=== PATIENT | male | born 1935 | race American Indian/Alaskan Native ===

== ENCOUNTER 2020-01-14 17:05 | Emergency (ER) | payer MEDICARE ==
--- NOTE | 2020-01-14 18:03 | Event Note ---
ED Screening Note Date of service: 01/14/20 Time: 18:01 ED Screening Note: daughter c/o combativeness and confusion x today pt states hx of Dementia, sates pt has calmed down after she gave him seroquel pt denies any pain This initial assessment/diagnostic orders/clinical plan/treatment(s) is/are subject to change based on patients health status, clinical progression and re- assessment by fellow clinical providers in the ED. Further treatment and workup at subsequent clinical providers discretion. Patient/guardian urged not to elope from the ED as their condition may be serious if not clinically assessed and managed. Initial orders include: labs
[2020-01-14 18:47] LABS: Basophils # (Auto) 0.1 K/mm3 (0.0-0.1); Eosinophils # (Auto) 0.2 K/mm3 (0.0-0.4); Eosinophils % (Auto) 3.3 % (0.0-4.3); Hematocrit 39.6 % (35.5-45.6); Hemoglobin 13.2 gm/dl (11.8-15.2); Lymphocytes # (Auto) 2.1 K/mm3 (1.2-5.4); Lymphocytes % (Auto) 37.2 % (13.4-35.0); Mean Corpuscular HGB Conc 33 % (32-34); Mean Corpuscular Volume 90 fl (84-94); Monocytes # (Auto) 0.5 K/mm3 (0.0-0.8); Monocytes % (Auto) 8.2 % (0.0-7.3); Platelet Count 198 K/mm3 (140-440); Red Blood Count 4.41 M/mm3 (3.65-5.03); Red Cell Distribution Width 15.2 % (13.2-15.2)
[2020-01-14 18:54] LABS: Bilirubin,Urine NEG (Negative); Blood,Urine NEG (Negative); Color,Urine Yellow (Yellow); Mucus,Urine FEW /HPF; Protein,Urine <15 mg/dL mg/dL (Negative); Urobilinogen,Urine < 2.0 mg/dL (<2.0)
--- NOTE | 2020-01-14 19:07 | XRay Report ---
CHEST 2 VIEWS INDICATION / CLINICAL INFORMATION: MAIN. Confusion and hallucinations COMPARISON: None available. FINDINGS: SUPPORT DEVICES: None. HEART / MEDIASTINUM: No significant abnormality. LUNGS / PLEURA: No significant pulmonary or pleural abnormality. No pneumothorax. ADDITIONAL FINDINGS: Minimally displaced right rib fracture involving the ninth rib laterally. IMPRESSION: 1. No acute cardiopulmonary process. 2. Minimally displaced right ninth rib fracture. Correlate for recent history of trauma. Signer Name: Manuel Tovar MD Signed: 01/14/2020 7:02 PM Workstation Name: [id number]
[2020-01-14 19:11] LABS: Alanine Aminotransferase 8 units/L (7-56)
[2020-01-14 19:25] LABS: BUN/Creatinine Ratio 15; Blood Urea Nitrogen 18 mg/dL (9-20); Calcium 7.8 mg/dL (8.4-10.2); Hemolysis Index 8
--- NOTE | 2020-01-14 20:01 | Cat Scan Report ---
CT HEAD WITHOUT CONTRAST INDICATION : hallucinations, hx of dementia. TECHNIQUE: Axial imaging performed from the skull apex through the skull base without the use of con trast. Sagittal and coronal reformatted images. All CT scans at this location are performed using C T dose reduction for ALARA by means of automated exposure control. COMPARISON: None FINDINGS: Parenchyma: No acute intracranial hemorrhage or parenchymal abnormality. Ventricles: Ventricles are normal in size and appear symmetric. Bones: No acute osseous abnormality. Sinuses: Sinuses and mastoid air cells are clear. Soft tissues: Soft tissues including the orbits appear normal. IMPRESSION: Cranial CT scan within normal limits. Signer Name: Presley Hadley Jr, MD Signed: 01/14/2020 7:56 PM Workstation Name: [id number]
--- NOTE | 2020-01-15 00:15 | Emergency Department Report ---
ED Psych HPI - General Chief Complaint: Altered Mental Status Stated Complaint: PATIENT DIAGNOSED WITH LEWY BODY Time Seen by Provider: 01/14/20 18:01 Source: patient Mode of arrival: Ambulatory - History of Present Illness Initial Comments: Patient is 84 years old male with history of dementia, hypertension and diabetes. Patient brought to the emergency room by his daughter for evaluation of confusion, agitation and significant visual hallucination. Daughter stated that he became very agitated and stating that he is seeing round things and lines and they are crawling on his body and is coming to his room from everywhere. Daughter stated that she gave him Seroquel that he was prescribed by his primary care physician. She stated that he had history of visual hallucination for the last few weeks but tonight is just get worse. Patient admitted that he is seeing stuff that other people are not seeing and is really bothering him. He denied any suicidal or homicidal ideation. No auditory hallucination. MD Complaint: altered mental status -: week(s) Associated Psychiatric Symptoms: visual hallucinations Quality: constant - Related Data Allergies Allergy/AdvReac Type Severity Reaction Status Date / Time haloperidol [From Haldol] Allergy Unknown Verified 01/14/20 18:01 ED Review of Systems ROS: Stated complaint: PATIENT DIAGNOSED WITH LEWY BODY Other details as noted in HPI Comment: All other systems reviewed and negative Constitutional: denies: chills, fever Respiratory: denies: cough, shortness of breath, SOB with exertion Cardiovascular: denies: chest pain, palpitations Gastrointestinal: denies: abdominal pain, nausea Neurological: confusion. denies: headache, weakness, numbness, paresthesias, abnormal gait Psychiatric: anxiety, visual hallucinations. denies: auditory hallucinations, homicidal thoughts, suicidal thoughts ED Past Medical Hx - Past Medical History Hx Hypertension: Yes Hx Diabetes: Yes Additional medical history: Prostate CA - Surgical History Past Surgical History?: No - Social History Smoking Status: Current Every Day Smoker ED Physical Exam - General Limitations: No Limitations General appearance: alert, in no apparent distress, anxious - Head Head exam: Present: atraumatic, normocephalic, normal inspection - Eye Eye exam: Present: normal appearance - ENT ENT exam: Present: normal exam, normal orophraynx, mucous membranes moist - Neck Neck exam: Present: normal inspection, full ROM. Absent: tenderness, meningis mus - Respiratory Respiratory exam: Present: normal lung sounds bilaterally - Cardiovascular Cardiovascular Exam: Present: regular rate, normal rhythm, normal heart sounds - GI/Abdominal GI/Abdominal exam: Present: soft, normal bowel sounds. Absent: distended, tenderness, guarding, rebound, rigid, organomegaly, mass, bruit, pulsatile mass, hernia - Extremities Exam Extremities exam: Present: normal inspection, full ROM, normal capillary refill - Back Exam Back exam: Present: normal inspection, full ROM. Absent: CVA tenderness (R), CVA tenderness (L) - Neurological Exam Neurological exam: Present: alert, oriented X3, CN II-XII intact, normal gait, reflexes normal. Absent: motor sensory deficit - Psychiatric Psychiatric exam: Present: normal mood - Skin Skin exam: Present: warm, intact, normal color ED Course Vital Signs 01/14/20 18:03 Temperature 98.0 F Pulse Rate 84 Respiratory 18 Rate Blood Pressure 167/87 O2 Sat by Pulse 98 Oximetry ED Medical Decision Making - Lab Data Result diagrams: 01/14/20 18:33 01/14/20 18:33 - Radiology Data Radiology results: report reviewed - Medical Decision Making Patient is 84 years old male with history of dementia, hypertension and diabetes. Patient brought to the emergency room by his daughter for evaluation of confusion, agitation and significant visual hallucination. Daughter stated that he became very agitated and stating that he is seeing round things and lines and they are crawling on his body and is coming to his room from everywhere. Daughter stated that she gave him Seroquel that he was prescribed by his primary care physician. She stated that he had history of visual hallucination for the last few weeks but tonight is just get worse. Patient admitted that he is seeing stuff that other people are not seeing and is really bothering him. He denied any suicidal or homicidal ideation. No auditory hallucination. Labs reviewed and is unremarkable. CT brain is negative for acute finding. Patient is experiencing dementia psychosis. Patient is medically clear to be evaluated by our psychiatric team. Critical care attestation.: If time is entered above; I have spent that time in minutes in the direct care of this critically ill patient, excluding procedure time. ED Disposition Clinical Impression: Altered mental status, Visual hallucination, Dementia with psychosis Condition: Stable Referrals: PRIMARY CARE, [Primary Care Provider] - 3-5 Days
[2020-01-15 01:16] LABS: Amphetamine Screen,Urine PRESUMPTIVE NEGATIVE; Benzodiazepines Screen,Urine PRESUMPTIVE NEGATIVE; Cannabinoid Screen,Urine PRESUMPTIVE NEGATIVE; Cocaine Screen,Urine PRESUMPTIVE NEGATIVE; Methadone Screen,Urine PRESUMPTIVE NEGATIVE; Opiate Screen,Urine PRESUMPTIVE NEGATIVE
[2020-01-15] MEDS ORDERED: METOPROLOL TARTRATE 50 MG TAB PO ONE (20:48)
[2020-01-15 20:53] VITALS: BP 158/72
== END 2020-01-15 22:19 ==
LOC: ED 17:05
DX: F23 Brief psychotic disorder (principal); F03.90 Unspecified dementia, unspecified severity, without behavioral disturbance, psychotic disturbance, mood disturbance, and anxiety; R41.82 Altered mental status, unspecified; I10 Essential (primary) hypertension; E11.9 Type 2 diabetes mellitus without complications; F17.200 Nicotine dependence, unspecified, uncomplicated; Z85.46 Personal history of malignant neoplasm of prostate; Z88.8 Allergy status to other drugs, medicaments and biological substances
CPT/HCPCS: 36415; 70450; 71045; 80053; 80307; 81001; 82962; 84484; 85025; 93005; 99285; U0003; 80320; G0480

== ENCOUNTER 2020-01-15 16:49 | Inpatient (IN) | payer MEDICARE ==
[2020-01-15] MEDS ORDERED: MELATONIN 5 MG TAB PO PRN (17:32)
[2020-01-15] MEDS: OMEGA-3 FATTY ACIDS/FISH OIL 1 GRAM CAP PO SCH (22:44)
[2020-01-15] MEDS: traZODone 50 MG TAB PO SCH (22:44)
--- NOTE | 2020-01-16 07:50 | History and Physical Report ---
GP History & Physical - History of Present Illness Date of admission: 01/15/20 Date of Examination: 01/16/20 Reason for Admission: Danger to others, Psychopathology interference History of Present Illness: Per ED Provider: Patient is 84 years old male with history of dementia, hypertension and diabetes. Patient brought to the emergency room by his daughter for evaluation of confusion, agitation and significant visual hallucination. Daughter stated that he became very agitated and stating that he is seeing round things and lines and they are crawling on his body and is coming to his room from everywhere. Daughter stated that she gave him Seroquel that he was prescribed by his primary care physician. She stated that he had history of visual hallucination for the last few weeks but tonight is just get worse. Patient admitted that he is seeing stuff that other people are not seeing and is really bothering him. He denied any suicidal or homicidal ideation. No auditory hallucination. HPI Patient is a 84-year-old retired -[place] male with no past psychiatric history with past medical history of Lewy body dementia was brought to emergency department by the daughter due to concerns of worsening visual hallucinations. Per daughter, she report patient has been having visual sedation in the last couple of weeks was started on Seroquel by the primary care provider but she seems to visualization has been worsening patient has been complaining more daily about seeing things such as people walking in his room people mopping the floor, the bubbles and or disturbing images that no one else sees which patient is aware that other people are not seeing. Patient is alert and oriented to self and environment patient knows it is year 2019 and is aware about the months patient scored 16 on the slums mental status exam correlating with diagnosis of dementia. Patient can be seen sometimes intermittently laughing at others even though conversations and not funny PAST PSYCHIATRIC HISTORY: Diagnoses: none Suicide attempts or Self-harm behavior: Prior psychiatric hospitalizations Substance Abuse history: Previous psychiatric medications tried: Outpatient treatment: PAST MEDICAL HISTORY: Pratik Body dementia Family Psychiatric History: None reported or documented SOCIAL HISTORY Marital Status: Living Arrangements:with self Employment Status: retired Access to guns/weapons: none reported Education: High school History of Abuse: physical Legal History: none reported REVIEW OF SYSTEMS ROS cannot be reliably obtained from the patient due to his mental state REVIEW OF SYSTEMS Constitutional: Negative for weight loss ENT: Negative for stridor Respiratory: Negative for cough or hemoptysis All other systems reviewed and are negative MENTAL STATUS EXAMINATION General Appearance and Behavior: Age appropriate, good hygiene, wearing appropriate clothes, good eye contact, cooperative polite with questioning. Cooperation: Participating Withdrawn Psychomotor Behavior: unremarkable and within normal limits Mood: Good, Affect and affective range: congruent Thought Process: Loose associations Thought Content: Illogical, hallucinations Speech: Normal volume, Regular rate and rhythm, Intellectual Functioning: Average Suicidal Ideation: Denies SI Homicidal Ideation: denies Impulse Control: Impaired Insight and Judgment: Impaired Memory: impaired Attention: Divided attention impaired Orientation: Alert, oriented Assessment and Plan - Psychiatric problem (1) Dementia with psychosis Current Visit: Yes Status: Acute Treatment Plan Quetiapine 100 mg BID Patient admitted for inpatient psychiatric evaluation, medication adjustment and close monitoring The patient's behavior, mood, sleep and appetite will be closely monitored. Patient enrolled in individual and group therapeutic sessions and encouraged to attend. Patient provided with a safe and structured environment. Patient's physical health needs will be addressed by the Hospitalist. Hospitalist Consulted Labs including CBC, CMP, Lipid profile and Hemoglobin A[facility]C [facility] Social Assessment will be completed and the Heart Coordinator will work with patient and family to ensure a suitable and safe disposition Medication adjustment will be made as clinically indicated Usual Wellness Islam/Preservation: - Start Trazodone 50 mg po QHS & 50 mg po QHS PRN between 10 PM & 2 AM for insomnia - Start Melatonin 5 mg po QHS to promote circadian rhythm - Start [place]-3 for brain health, reduce impulsivity, and as adjunctive treatment for mood disorder, continue upon discharge given overall benefits. - Start B1 prophylaxis with 200 mg po for 5 days The patient agreed on the treatment plan, understood the risk, benefit, alternative treatment, potential consequence of no treatment, and gave informed consent. Initial Certification Inpatient psych services: I certify that the inpatient psychiatric services are required for treatment that could reasonably be expected to improve the patient's condition. Estimated days: 7 Post hospital care: primary care provider, psychiatric provider Legal Status: Other Patient Problems: Current Active Problems Dementia with psychosis (Acute) Reaction to Hospitalization: Accepting Medications and Allergies Allergies Allergy/AdvReac Type Severity Reaction Status Date / Time haloperidol [From Haldol] Allergy Unknown Verified 01/14/20 18:01 Home Medications Medication Instructions Recorded Confirmed Last Taken Type Memantine HCl 21 mg PO DAILY 01/16/20 01/16/20 Unknown History Metoprolol Tartrate 50 mg PO DAILY 01/16/20 01/16/20 Unknown History Pravastatin Sodium 20 mg PO DAILY 01/16/20 01/16/20 Unknown History Rivastigmine [Exelon Patch 9.5 mg TRANSDERMA Q24HR 01/16/20 01/16/20 Unknown History 9.5mg/24hr] SEROquel 50 mg PO BID 01/16/20 01/16/20 Unknown History Tamsulosin 0.4 mg PO DAILY 01/16/20 01/16/20 Unknown History Active Meds: Active Medications Fish Oil (Fish Oil) 2,000 mg PO BID [facility] Last Admin: 01/15/20 22:44 Dose: 2,000 mg Documented by: Melatonin (Melatonin) 5 mg PO QHS PRN PRN Reason: Sleep Last Admin: 01/15/20 22:44 Dose: 5 mg Documented by: Trazodone HCl (Desyrel) 50 mg PO QHS [facility] Last Admin: 01/15/20 22:44 Dose: 50 mg Documented by: Results - Results Labs/Vitals: Laboratory Last Values POC Glucose 103 mg/dL (70-105) 01/16/20 06:38 Last Vital Signs Temp 98.4 F 01/15/20 22:33 Pulse 75 01/15/20 22:33 Resp 16 01/15/20 22:33 BP 132/73 01/15/20 22:33 Pulse Ox 98 01/15/20 22:33 Physical Examination - Constitutional Vitals: Vital Signs Temp Pulse Resp BP Pulse Ox 98.4 F 75 16 132/73 98 01/15/20 22:33 01/15/20 22:33 01/15/20 22:33 01/15/20 22:33 01/15/20 22:33 Temperature -Last 24 Hours Temperature 98.4 F Mental Status Exam - Vital signs Last Vital Signs Temp 98.4 F 01/15/20 22:33 Pulse 75 01/15/20 22:33 Resp 16 01/15/20 22:33 BP 132/73 01/15/20 22:33 Pulse Ox 98 01/15/20 22:33 Assessment and Plan - Psychiatric problem (1) Dementia with psychosis Current Visit: Yes Status: Acute Physician Certification - Certification Statement Physician Certification Statement: This is an acknowledgement statement that DENISE SHRAIF is a 84 year old M who requires inpatient psychiatric admission for treatment which could reasonably be expected to improve the patient's condition for Estimated period of time patient will need to remain in the hospital: [ ] Plan for post-hospital care: [ ]
[2020-01-16] MEDS: OMEGA-3 FATTY ACIDS/FISH OIL 1 GRAM CAP PO SCH ×2 (09:18→21:44)
[2020-01-16] MEDS: QUEtiapine 100 MG TAB PO SCH ×2 (09:19→21:45)
[2020-01-16] MEDS ORDERED: NON-FORMULARY EACH (Seroquel 100 MG) PO SCH (10:00)
[2020-01-16 17:41] LABS: Chol/HDL Ratio 3.53 %
[2020-01-16 17:47] LABS: Hepatitis B Surface Antigen Non-Reactive (Negative); Hepatitis C Virus Antibody Non-Reactive (NonReactive)
[2020-01-16] MEDS: traZODone 50 MG TAB PO SCH (21:45)
--- NOTE | 2020-01-17 08:10 | Progress Note ---
Subjective Date of service: 01/17/20 Principal diagnosis: Lewybody Dementia Subjective Comment: During my interview with the patient today, he is sitting in the dayroom eating breakfast. He is a/o x 2. He says he was admitted for hallucinations. The patient says "I was seeing spots all over the floor." When asked was he still seeing things, the patient starts looking down and around over the floor. He says "not now. I don't see nothing on the floor." He then says, "but in my room this morning I saw the spots and bubbles on the floor." He denies SI/HI. The patient says he slept well. Reason for continued inpatient treatment: The patient continues to hallucinate. Will continue to treat and stabilize. REVIEW OF SYSTEMS Constitutional: Negative for weight loss ENT: Negative for stridor Respiratory: Negative for cough or hemoptysis All other systems reviewed and are negative MENTAL STATUS EXAMINATION General Appearance and Behavior: Age appropriate, good hygiene, wearing appropriate clothes, good eye contact, cooperative polite with questioning. Mood: Good Affect and affective range: congruent Thought Process: Loose associations Thought Content: Illogical, hallucinations Speech: Normal volume, Regular rate and rhythm, Intellectual Functioning: Average Suicidal Ideation: Denies Homicidal Ideation: Denies Hallucinations: Visual Delusions: None elicited Impulse Control: Impaired Insight and Judgment: Impaired Memory: impaired Attention: Divided attention impaired Orientation: Alert, oriented Assessment and Plan (1) Dementia with psychosis Current Visit: Yes Status: Acute Treatment Plan Patient admitted for inpatient psychiatric evaluation, medication adjustment and close monitoring The patient's behavior, mood, sleep and appetite will be closely monitored. Patient enrolled in individual and group therapeutic sessions and encouraged to attend. Patient provided with a safe and structured environment. Patient's physical health needs will be addressed by the Hospitalist. Hospitalist Consulted Labs including CBC, CMP, Lipid profile and Hemoglobin A1C levels ordered for baseline reference Social Assessment will be completed and the Hide Buyer will work with patient and family to ensure a suitable and safe disposition Medication adjustment will be made as clinically indicated Continue current meds. No changes made today Usual Wellness Hinduism/Preservation: - Start Trazodone 50 mg po QHS & 50 mg po QHS PRN between 10 PM & 2 AM for insomnia - Start Melatonin 5 mg po QHS to promote circadian rhythm - Start [place]-3 for brain health, reduce impulsivity, and as adjunctive treatment for mood disorder, continue upon discharge given overall benefits. - Start B1 prophylaxis with 200 mg po for 5 days The patient agreed on the treatment plan, understood the risk, benefit, alternative treatment, potential consequence of no treatment, and gave informed consent. Estimated days: 7 Post hospital care: primary care provider, psychiatric provider Medications and Allergies Allergies Allergy/AdvReac Type Severity Reaction Status Date / Time haloperidol [From Haldol] Allergy Unknown Verified 01/14/20 18:01 Home Medications Medication Instructions Recorded Confirmed Last Taken Type Memantine HCl 21 mg PO DAILY 01/16/20 01/16/20 Unknown History Metoprolol Tartrate 50 mg PO DAILY 01/16/20 01/16/20 Unknown History Pravastatin Sodium 20 mg PO DAILY 01/16/20 01/16/20 Unknown History Rivastigmine [Exelon Patch 9.5 mg TRANSDERMA Q24HR 01/16/20 01/16/20 Unknown History 9.5mg/24hr] SEROquel 50 mg PO BID 01/16/20 01/16/20 Unknown History Tamsulosin 0.4 mg PO DAILY 01/16/20 01/16/20 Unknown History Active Meds: Active Medications Fish Oil (Fish Oil) 2,000 mg PO BID [facility] Last Admin: 01/16/20 21:44 Dose: 2,000 mg Documented by: Melatonin (Melatonin) 5 mg PO QHS PRN PRN Reason: Sleep Last Admin: 01/15/20 22:44 Dose: 5 mg Documented by: Quetiapine Fumarate (Seroquel) 100 mg PO BID [facility] Last Admin: 01/16/20 21:45 Dose: 100 mg Documented by: Trazodone HCl (Desyrel) 50 mg PO QHS [facility] Last Admin: 01/16/20 21:45 Dose: 50 mg Documented by: Results - Results Labs/Vitals: Laboratory Last Values POC Glucose 102 mg/dL (70-105) 01/17/20 08:07 Hemoglobin A1c 6.1 % (4-6) H 01/16/20 16:35 Triglycerides 85 mg/dL (2-149) 01/16/20 16:35 Cholesterol 191 mg/dL (50-199) 01/16/20 16:35 LDL Cholesterol Direct 129 mg/dL (50-130) 01/16/20 16:35 HDL Cholesterol 54 mg/dL (40-59) 01/16/20 16:35 Cholesterol/HDL Ratio 3.53 % 01/16/20 16:35 TSH 1.770 mlU/mL (0.270-4.200) 01/16/20 16:35 Hepatitis A IgM Ab Non-reactive (NonReactive) 01/16/20 16: Hep Bs Antigen Non-reactive (Negative) 01/16/20 16: Hep B Core IgM Ab Non-reactive (NonReactive) 01/16/20 16: Hepatitis C Antibody Non-reactive (NonReactive) 01/16/20 16:35 Last Vital Signs Temp 97.6 F 01/16/20 22:00 Pulse 76 01/16/20 22:00 Resp 18 01/16/20 22:00 BP 111/59 01/16/20 22:00 Pulse Ox 98 01/16/20 22:00
[2020-01-17] MEDS: OMEGA-3 FATTY ACIDS/FISH OIL 1 GRAM CAP PO SCH ×2 (09:57→22:28)
[2020-01-17] MEDS: QUEtiapine 100 MG TAB PO SCH ×2 (09:58→22:28)
--- NOTE | 2020-01-17 19:11 | History and Physical Report ---
History of Present Illness Date of examination: 01/17/20 Date of admission: 01/15/20 19:50 Chief complaint: Hallucinations History of present illness: Patient is a 84-year-old retired -Prydeinig male with no past psychiatric history with past medical history of Lewy body dementia was brought to emergency department by the daughter due to concerns of worsening visual hallucinations. Per daughter, she report patient has been having visual sedation in the last couple of weeks was started on Seroquel by the primary care provider but she seems to visualization has been worsening patient has been complaining more daily about seeing things such as people walking in his room people mopping the floor, the bubbles and or disturbing images that no one else sees which patient is aware that other people are not seeing. Patient is alert and oriented to self and environment patient knows it is 2019 and is aware about the months patient scored 16 on the mental status exam correlating with diagnosis of dementia. Patient well-known to me has been cooperative. Has had stable dementia but never department having hallucinations. Concerning today is that the patient is not aware who I am in over 20 years he is always known to me and able to communicate with me therefore this is somewhat concerning. Patient did have some hallucinations on last visit he was given Seroquel to help with agitation and night and hallucinations. PAST PSYCHIATRIC HISTORY: Past History Past Medical History: hypertension. denies: acute MS, atrial fib, arrhythmia, anemia, arthritis, CAD, cancer, COPD, diabetes, dialysis, DVT, hyperlipidemia, liver disease, seizures Past Surgical History: No surgical history Social history: , Lives alone, full code (Lives in senior center[facility] other. denies: alcohol abuse, prescription drug abuse, IV drug use Family history: no significant family history Medications and Allergies Allergies Allergy/AdvReac Type Severity Reaction Status Date / Time haloperidol [From Haldol] Allergy Unknown Verified 01/14/20 18:01 Home Medications Medication Instructions Recorded Confirmed Last Taken Type Memantine HCl 21 mg PO DAILY 01/16/20 01/16/20 Unknown History Metoprolol Tartrate 50 mg PO DAILY 01/16/20 01/16/20 Unknown History Pravastatin Sodium 20 mg PO DAILY 01/16/20 01/16/20 Unknown History Rivastigmine [Exelon Patch 9.5 mg TRANSDERMA Q24HR 01/16/20 01/16/20 Unknown History 9.5mg/24hr] SEROquel 50 mg PO BID 01/16/20 01/16/20 Unknown History Tamsulosin 0.4 mg PO DAILY 01/16/20 01/16/20 Unknown History Active Meds: Active Medications Fish Oil (Fish Oil) 2,000 mg PO BID [facility] Last Admin: 01/17/20 09:57 Dose: 2,000 mg Documented by: Melatonin (Melatonin) 5 mg PO QHS PRN PRN Reason: Sleep Last Admin: 01/15/20 22:44 Dose: 5 mg Documented by: Quetiapine Fumarate (Seroquel) 100 mg PO BID [facility] Last Admin: 01/17/20 09:58 Dose: 100 mg Documented by: Trazodone HCl (Desyrel) 50 mg PO QHS [facility] Last Admin: 01/16/20 21:45 Dose: 50 mg Documented by: Review of Systems Constitutional: no weight loss, no weight gain, no fever, no weakness, no malaise, no lethargy, no poor appetite, no other Ears, nose, mouth and throat: no deferred, no sinus pressure, no mouth pain, no hoarseness, no neck lump Cardiovascular: no orthopnea, no rapid/irregular heart beat, no shortness of breath, no high blood pressure, no leg edema, no other Respiratory: no hemoptysis, no dyspnea on exertion, no snoring Gastrointestinal: no nausea, no change in bowel habits, no coffee ground emesis, no early satiety, no heartburn Genitourinary Male: no nocturia, no incontinence, no genital pain, no decreased libido, no difficulties fathering child Rectal: no incontinence, no itching Musculoskeletal: no neck stiffness, no low back pain, no leg numbness/tingling, no muscle weakness, no atrophy, no loss of height, no other Neurological: no transient paralysis, no parathesias, no numbness, no tingling, no seizures, no headaches, no migraines, no convulsions, no aphasia, no double vision, no loss of vision, no hearing difficulties Psychiatric: memory loss, change in sleep habits, hallucinations, paranoia, no anxiety, no sleep disturbances, no insomnia, no hypersomnia, no change in appetite, no change in libido, no suicidal ideation, no disorientation, no depression, no hopelessness, no anhedonia, no anxiety attacks, no difficulties concentrating, no confusion, no sadness/tearfullness, no mood swings Endocrine: no polyphagia, no weight change, no proptosis, no thyroid mass, no palpatations, no low blood sugars Hematologic/Lymphatic: no lymphedema, no thrombophilia Allergic/Immunologic: no urticaria Exam - Constitutional Vitals: Temp Pulse Resp BP Pulse Ox 97.5 F L 77 18 128/65 98 01/17/20 07:38 01/17/20 07:38 01/17/20 07:38 01/17/20 07:38 01/17/20 07:38 General appearance: Present: no acute distress, well-nourished - EENT Eyes: Present: PERRL ENT: hearing intact, clear oral mucosa - Neck Neck: Present: supple, normal ROM - Respiratory Respiratory effort: normal Respiratory: bilateral: CTA - Cardiovascular Heart Sounds: Present: S1 & S2. Absent: rub, click - Extremities Extremities: pulses symmetrical, No edema Peripheral Pulses: within normal limits - Abdominal General gastrointestinal: Present: soft, non-tender, non-distended, normal bowel sounds Male genitourinary: Present: normal - Integumentary Integumentary: Present: clear, warm, dry - Musculoskeletal Musculoskeletal: gait normal, strength equal bilaterally - Psychiatric Psychiatric: appropriate mood/affect, intact judgment & insight - Neurologic Neurologic: CNII-XII intact, moves all extremities Results - Labs Labs: Laboratory Last Values POC Glucose 102 mg/dL (70-105) 01/17/20 08:07 Hemoglobin A1c 6.1 % (4-6) H 01/16/20 16:35 Triglycerides 85 mg/dL (2-149) 01/16/20 16:35 Cholesterol 191 mg/dL (50-199) 01/16/20 16:35 LDL Cholesterol Direct 129 mg/dL (50-130) 01/16/20 16:35 HDL Cholesterol 54 mg/dL (40-59) 01/16/20 16:35 Cholesterol/HDL Ratio 3.53 % 01/16/20 16:35 TSH 1.770 mlU/mL (0.270-4.200) 01/16/20 16:35 Hepatitis A IgM Ab Non-reactive (NonReactive) 01/16/20 16:35 Hep Bs Antigen Non-reactive (Negative) 01/16/20 16:35 Hep B Core IgM Ab Non-reactive (NonReactive) 01/16/20 16:35 Hepatitis C Antibody Non-reactive (NonReactive) 01/16/20 16:35 [place]/IV: Voiding Method Toilet Assessment and Plan Advance Directives: Yes (Have spoken to the daughter about this in the past.) Contraindication Mechanical VTE Prophylaxis: Treatment Not Indicated - Patient Problems (1) Hypertension Current Visit: Yes Status: Acute Plan to address problem: We will hold antibiotic coverage. Patient has been normotensive not requiring blood pressure medications. (2) Dementia with psychosis Current Visit: No Status: Acute Plan to address problem: Dementia with psychosis. Patient inpatient admission for hallucinations. Electrolytes stable labs stable. Exact etiology most likely underlying and worsening dementia. Will obtain chemistry in another day or so. (3) Visual hallucination Current Visit: No Status: Acute (4) Hyperlipidemia Current Visit: Yes Status: Acute Qualifiers: Qualified Code(s): E78.5 - Hyperlipidemia, unspecified Plan to address problem: At present okay to hold statin at this particular time.
[2020-01-17] MEDS: traZODone 50 MG TAB PO SCH (22:28)
[2020-01-18] MEDS: QUEtiapine 100 MG TAB PO SCH ×2 (13:36→21:35)
[2020-01-18] MEDS: OMEGA-3 FATTY ACIDS/FISH OIL 1 GRAM CAP PO SCH ×2 (13:36→21:35)
--- NOTE | 2020-01-18 13:38 | Progress Note ---
Subjective Date of service: 01/18/20 Principal diagnosis: Lewybody Dementia Subjective Comment: During my interview with the patient today, he is sitting in the dayroom eating breakfast. He is a/o x 2. He is calm and cooperative. He says he is doing "fine." He denies SI/HI. The patient verbalizes "seeing spots moving sometimes." He says "but right now I don't see nothing. I did this morning when I woke up." Reason for continued inpatient treatment: The patient continues to hallucinate. Will continue to treat and stabilize. REVIEW OF SYSTEMS Constitutional: Negative for weight loss ENT: Negative for stridor Respiratory: Negative for cough or hemoptysis All other systems reviewed and are negative MENTAL STATUS EXAMINATION General Appearance and Behavior: Age appropriate, good hygiene, wearing appropriate clothes, good eye contact, cooperative polite with questioning. Mood: Good Affect and affective range: congruent Thought Process: Loose associations Thought Content: Illogical, hallucinations Speech: Normal volume, Regular rate and rhythm, Intellectual Functioning: Average Suicidal Ideation: Denies Homicidal Ideation: Denies Hallucinations: Visual Delusions: None elicited Impulse Control: Impaired Insight and Judgment: Impaired Memory: impaired Attention: Divided attention impaired Orientation: Alert, oriented Assessment and Plan (1) Dementia with psychosis Current Visit: Yes Status: Acute Treatment Plan Patient admitted for inpatient psychiatric evaluation, medication adjustment and close monitoring The patient's behavior, mood, sleep and appetite will be closely monitored. Patient enrolled in individual and group therapeutic sessions and encouraged to attend. Patient provided with a safe and structured environment. Patient's physical health needs will be addressed by the Hospitalist. Hospitalist Consulted Labs including CBC, CMP, Lipid profile and Hemoglobin A1C levels ordered for baseline reference Social Assessment will be completed and the Wet Machine Cutter will work with patient and family to ensure a suitable and safe disposition Medication adjustment will be made as clinically indicated Continue current meds. No changes made today Usual Wellness Yarsani/Preservation: - Start Trazodone 50 mg po QHS & 50 mg po QHS PRN between 10 PM & 2 AM for insomnia - Start Melatonin 5 mg po QHS to promote circadian rhythm - Start [place]-3 for brain health, reduce impulsivity, and as adjunctive treatment for mood disorder, continue upon discharge given overall benefits. - Start B1 prophylaxis with 200 mg po for 5 days The patient agreed on the treatment plan, understood the risk, benefit, alternative treatment, potential consequence of no treatment, and gave informed consent. Estimated days: 3 Post hospital care: primary care provider, psychiatric provider Medications and Allergies Allergies Allergy/AdvReac Type Severity Reaction Status Date / Time haloperidol [From Haldol] Allergy Unknown Verified 01/14/20 18:01 Home Medications Medication Instructions Recorded Confirmed Last Taken Type Memantine HCl 21 mg PO DAILY 01/16/20 01/16/20 Unknown History Metoprolol Tartrate 50 mg PO DAILY 01/16/20 01/16/20 Unknown History Pravastatin Sodium 20 mg PO DAILY 01/16/20 01/16/20 Unknown History Rivastigmine [Exelon Patch 9.5 mg TRANSDERMA Q24HR 01/16/20 01/16/20 Unknown History 9.5mg/24hr] SEROquel 50 mg PO BID 01/16/20 01/16/20 Unknown History Tamsulosin 0.4 mg PO DAILY 01/16/20 01/16/20 Unknown History Active Meds: Active Medications Fish Oil (Fish Oil) 2,000 mg PO BID [facility] Last Admin: 01/18/20 13:36 Dose: 2,000 mg Documented by: Melatonin (Melatonin) 5 mg PO QHS PRN PRN Reason: Sleep Last Admin: 01/15/20 22:44 Dose: 5 mg Documented by: Quetiapine Fumarate (Seroquel) 100 mg PO BID [facility] Last Admin: 01/18/20 13:36 Dose: 100 mg Documented by: Trazodone HCl (Desyrel) 50 mg PO QHS [facility] Last Admin: 01/17/20 22:28 Dose: 50 mg Documented by: Results - Results Labs/Vitals: Laboratory Last Values POC Glucose 102 mg/dL (70-105) 01/17/20 08:07 Hemoglobin A1c 6.1 % (4-6) H 01/16/20 16:35 Triglycerides 85 mg/dL (2-149) 01/16/20 16:35 Cholesterol 191 mg/dL (50-199) 01/16/20 16:35 LDL Cholesterol Direct 129 mg/dL (50-130) 01/16/20 16:35 HDL Cholesterol 54 mg/dL (40-59) 01/16/20 16:35 Cholesterol/HDL Ratio 3.53 % 01/16/20 16:35 TSH 1.770 mlU/mL (0.270-4.200) 01/16/20 16:35 Hepatitis A IgM Ab Non-reactive (NonReactive) 01/16/20 16:35 Hep Bs Antigen Non-reactive (Negative) 01/16/20 16:35 Hep B Core IgM Ab Non-reactive (NonReactive) 01/16/20 16:35 Hepatitis C Antibody Non-reactive (NonReactive) 01/16/20 16:35 Last Vital Signs Temp 97.7 F 01/17/20 19:25 Pulse 77 01/17/20 19:25 Resp 16 01/17/20 19:25 BP 120/61 01/17/20 19:25 Pulse Ox 99 01/17/20 19:25
[2020-01-18] MEDS: traZODone 50 MG TAB PO SCH (21:35)
--- NOTE | 2020-01-19 09:15 | Progress Note ---
Subjective Date of service: 01/19/20 Principal diagnosis: Lewybody Dementia Subjective Comment: During my interview with the patient today, he is sitting in the dayroom eating breakfast. He is a/o x 2. He is calm and cooperative. He says he is doing "fine." He denies SI/HI. The patient says "I'm seeing spots moving all around." He moves his hand around to make his point. He then pulls off his mask and asks me if I can see a spot in it. Reason for continued inpatient treatment: The patient continues to hallucinate. Will continue to treat and stabilize. REVIEW OF SYSTEMS Constitutional: Negative for weight loss ENT: Negative for stridor Respiratory: Negative for cough or hemoptysis All other systems reviewed and are negative MENTAL STATUS EXAMINATION General Appearance and Behavior: Age appropriate, good hygiene, wearing appropriate clothes, good eye contact, cooperative polite with questioning. Mood: Good Affect and affective range: congruent Thought Process: Loose associations Thought Content: Illogical, hallucinations Speech: Normal volume, Regular rate and rhythm, Intellectual Functioning: Average Suicidal Ideation: Denies Homicidal Ideation: Denies Hallucinations: Visual Delusions: None elicited Impulse Control: Impaired Insight and Judgment: Impaired Memory: impaired Attention: Divided attention impaired Orientation: Alert, oriented Assessment and Plan (1) Dementia with psychosis Current Visit: Yes Status: Acute Treatment Plan Patient admitted for inpatient psychiatric evaluation, medication adjustment and close monitoring The patient's behavior, mood, sleep and appetite will be closely monitored. Patient enrolled in individual and group therapeutic sessions and encouraged to attend. Patient provided with a safe and structured environment. Patient's physical health needs will be addressed by the Hospitalist. Hospitalist Consulted Labs including CBC, CMP, Lipid profile and Hemoglobin A1C levels ordered for baseline reference Social Assessment will be completed and the Ware Carrier will work with patient and family to ensure a suitable and safe disposition Medication adjustment will be made as clinically indicated Continue current meds. No changes made today Usual Wellness Sabianism/Preservation: - Start Trazodone 50 mg po QHS & 50 mg po QHS PRN between 10 PM & 2 AM for insomnia - Start Melatonin 5 mg po QHS to promote circadian rhythm - Start [place]-3 for brain health, reduce impulsivity, and as adjunctive kanchan atment for mood disorder, continue upon discharge given overall benefits. - Start B1 prophylaxis with 200 mg po for 5 days The patient agreed on the treatment plan, understood the risk, benefit, alt ernative treatment, potential consequence of no treatment, and gave informed consent. Estimated days: 3 Post hospital care: primary care provider, psychiatric provider Medications and Allergies Allergies Allergy/AdvReac Type Severity Reaction Status Date / Time haloperidol [From Haldol] Allergy Unknown Verified 01/14/20 18:01 Home Medications Medication Instructions Recorded Confirmed Last Taken Type Memantine HCl 21 mg PO DAILY 01/16/20 01/16/20 Unknown History Metoprolol Tartrate 50 mg PO DAILY 01/16/20 01/16/20 Unknown History Pravastatin Sodium 20 mg PO DAILY 01/16/20 01/16/20 Unknown History Rivastigmine [Exelon Patch 9.5 mg TRANSDERMA Q24HR 01/16/20 01/16/20 Unknown History 9.5mg/24hr] SEROquel 50 mg PO BID 01/16/20 01/16/20 Unknown History Tamsulosin 0.4 mg PO DAILY 01/16/20 01/16/20 Unknown History Active Meds: Active Medications Fish Oil (Fish Oil) 2,000 mg PO BID [facility] Last Admin: 01/18/20 21:35 Dose: 2,000 mg Documented by: Melatonin (Melatonin) 5 mg PO QHS PRN PRN Reason: Sleep Last Admin: 01/15/20 22:44 Dose: 5 mg Documented by: Quetiapine Fumarate (Seroquel) 100 mg PO BID [facility] Last Admin: 01/18/20 21:35 Dose: 100 mg Documented by: Trazodone HCl (Desyrel) 50 mg PO QHS [facility] Last Admin: 01/18/20 21:35 Dose: 50 mg Documented by: Results - Results Labs/Vitals: Laboratory Last Values POC Glucose 97 mg/dL (70-105) 01/18/20 19:53 Hemoglobin A1c 6.1 % (4-6) H 01/16/20 16:35 Triglycerides 85 mg/dL (2-149) 01/16/20 16:35 Cholesterol 191 mg/dL (50-199) 01/16/20 16:35 LDL Cholesterol Direct 129 mg/dL (50-130) 01/16/20 16:35 HDL Cholesterol 54 mg/dL (40-59) 01/16/20 16:35 Cholesterol/HDL Ratio 3.53 % 01/16/20 16:35 TSH 1.770 mlU/mL (0.270-4.200) 01/16/20 16:35 Hepatitis A IgM Ab Non-reactive (NonReactive) 01/16/20 16:35 Hep Bs Antigen Non-reactive (Negative) 01/16/20 16:35 Hep B Core IgM Ab Non-reactive (NonReactive) 01/16/20 16:35 Hepatitis C Antibody Non-reactive (NonReactive) 01/16/20 16:35 Last Vital Signs Temp 97.4 F L 01/18/20 19:43 Pulse 75 01/18/20 19:43 Resp 17 01/18/20 19:43 BP 150/71 01/18/20 19:43 Pulse Ox 99 01/18/20 19:43
[2020-01-19] MEDS: QUEtiapine 100 MG TAB PO SCH ×2 (10:32→21:25)
[2020-01-19] MEDS: OMEGA-3 FATTY ACIDS/FISH OIL 1 GRAM CAP PO SCH ×2 (10:32→21:25)
[2020-01-19] MEDS: traZODone 50 MG TAB PO SCH (21:25)
--- NOTE | 2020-01-20 08:54 | Progress Note ---
Subjective Date of service: 01/20/20 Principal diagnosis: Lewybody Dementia Subjective Comment: The patient's medical record was viewed and the patient's progress was discussed with the nursing staff. During my interview with the patient today, he is sitting in the dayroom. He says he still sees "little spots." He says he's doing "fine" despite that. The patient says "it don't scare me. I just see spots." He says he "slept like a baby." The patient denies SI/HI. Reason for continued inpatient treatment: The patient has improved significantly. He has nonthreatening visual hallucinations. Will continue to monitor and plan for a safe discharge. REVIEW OF SYSTEMS Constitutional: Negative for weight loss ENT: Negative for stridor Respiratory: Negative for cough or hemoptysis All other systems reviewed and are negative MENTAL STATUS EXAMINATION General Appearance and Behavior: Age appropriate, good hygiene, wearing appropriate clothes, good eye contact, cooperative polite with questioning. Mood: Fine Affect and affective range: congruent Thought Process: Loose associations Thought Content: hallucinations Speech: Normal volume, Regular rate and rhythm, Intellectual Functioning: Average Suicidal Ideation: Denies Homicidal Ideation: Denies Hallucinations: Visual Delusions: None elicited Impulse Control: Impaired Insight and Judgment: Impaired Memory: impaired Attention: Divided attention impaired Orientation: Alert, oriented Assessment and Plan (1) Dementia with psychosis Current Visit: Yes Status: Acute Treatment Plan Patient admitted for inpatient psychiatric evaluation, medication adjustment and close monitoring The patient's behavior, mood, sleep and appetite will be closely monitored. Patient enrolled in individual and group therapeutic sessions and encouraged to attend. Patient provided with a safe and structured environment. Patient's physical health needs will be addressed by the Hospitalist. Hospitalist Consulted Labs including CBC, CMP, Lipid profile and Hemoglobin A1C levels ordered for baseline reference Social Assessment will be completed and the Rn First Assistant will work with patient and family to ensure a suitable and safe disposition Medication adjustment will be made as clinically indicated Continue current meds. No changes made today Usual Wellness Episcopalian/Preservation: - Start Trazodone 50 mg po QHS & 50 mg po QHS PRN between 10 PM & 2 AM for insomnia - Start Melatonin 5 mg po QHS to promote circadian rhythm - Start [place]-3 for brain health, reduce impulsivity, and as adjunctive treatment for mood disorder, continue upon discharge given overall benefits. - Start B1 prophylaxis with 200 mg po for 5 days The patient agreed on the treatment plan, understood the risk, benefit, alternative treatment, potential consequence of no treatment, and gave informed consent. Estimated days: 1 Post hospital care: primary care provider, psychiatric provider Medications and Allergies Allergies Allergy/AdvReac Type Severity Reaction Status Date / Time haloperidol [From Haldol] Allergy Unknown Verified 01/14/20 18:01 Home Medications Medication Instructions Recorded Confirmed Last Taken Type Memantine HCl 21 mg PO DAILY 01/16/20 01/16/20 Unknown History Metoprolol Tartrate 50 mg PO DAILY 01/16/20 01/16/20 Unknown History Pravastatin Sodium 20 mg PO DAILY 01/16/20 01/16/20 Unknown History Rivastigmine [Exelon Patch 9.5 mg TRANSDERMA Q24HR 01/16/20 01/16/20 Unknown History 9.5mg/24hr] Tamsulosin 0.4 mg PO DAILY 01/16/20 01/16/20 Unknown History [place]-3 Fatty Acids/Fish Oil [Fish 2,000 mg PO BID #120 capsule 01/20/20 Unknown Rx Oil] QUEtiapine [SEROquel] 100 mg PO BID #60 tablet 01/20/20 Unknown Rx traZODone [Desyrel] 50 mg PO QHS #30 tablet 01/20/20 Unknown Rx Active Meds: Active Medications Fish Oil (Fish Oil) 2,000 mg PO BID [facility] Last Admin: 01/19/20 21:25 Dose: 2,000 mg Documented by: Melatonin (Melatonin) 5 mg PO QHS PRN PRN Reason: Sleep Last Admin: 01/15/20 22:44 Dose: 5 mg Documented by: Quetiapine Fumarate (Seroquel) 100 mg PO BID [facility] Last Admin: 01/19/20 21:25 Dose: 100 mg Documented by: Trazodone HCl (Desyrel) 50 mg PO QHS [facility] Last Admin: 01/19/20 21:25 Dose: 50 mg Documented by: Results - Results Labs/Vitals: Laboratory Last Values POC Glucose 97 mg/dL (70-105) 01/20/20 06:36 Hemoglobin A1c 6.1 % (4-6) H 01/16/20 16:35 Triglycerides 85 mg/dL (2-149) 01/16/20 16:35 Cholesterol 191 mg/dL (50-199) 01/16/20 16:35 LDL Cholesterol Direct 129 mg/dL (50-130) 01/16/20 16:35 HDL Cholesterol 54 mg/dL (40-59) 01/16/20 16:35 Cholesterol/HDL Ratio 3.53 % 01/16/20 16:35 TSH 1.770 mlU/mL (0.270-4.200) 01/16/20 16:35 Hepatitis A IgM Ab Non-reactive (NonReactive) 01/16/20 16:35 Hep Bs Antigen Non-reactive (Negative) 01/16/20 16:35 Hep B Core IgM Ab Non-reactive (NonReactive) 01/16/20 16:35 Hepatitis C Antibody Non-reactive (NonReactive) 01/16/20 16:35 Last Vital Signs Temp 97.6 F 01/20/20 07:17 Pulse 77 01/20/20 07:17 Resp 18 01/20/20 07:17 BP 129/78 01/20/20 07:17 Pulse Ox 98 01/20/20 07:17
[2020-01-20] MEDS: OMEGA-3 FATTY ACIDS/FISH OIL 1 GRAM CAP PO SCH ×2 (09:14→22:24)
[2020-01-20] MEDS: QUEtiapine 100 MG TAB PO SCH ×2 (09:15→22:24)
[2020-01-20 09:44] LABS: Basophils % (Auto) 0.5 % (0.0-1.8); Eosinophils # (Auto) 0.2 K/mm3 (0.0-0.4); Hematocrit 41.1 % (35.5-45.6); Hemoglobin 13.8 gm/dl (11.8-15.2); Lymphocytes # (Auto) 1.6 K/mm3 (1.2-5.4); Lymphocytes % (Auto) 29.8 % (13.4-35.0); Mean Corpuscular HGB Conc 34 % (32-34); Mean Corpuscular Volume 91 fl (84-94); Monocytes # (Auto) 0.4 K/mm3 (0.0-0.8); Monocytes % (Auto) 7.3 % (0.0-7.3); Platelet Count 191 K/mm3 (140-440); Red Blood Count 4.55 M/mm3 (3.65-5.03); Red Cell Distribution Width 15.4 % (13.2-15.2)
[2020-01-20 09:50] LABS: BUN/Creatinine Ratio 17; Blood Urea Nitrogen 20 mg/dL (9-20); Calcium 8.2 mg/dL (8.4-10.2); Hemolysis Index 9
[2020-01-20] MEDS: traZODone 50 MG TAB PO SCH (22:25)
[2020-01-21] MEDS ORDERED: OMEGA-3 FATTY ACIDS/FISH OIL 1 GRAM CAP PO ONE (09:58)
[2020-01-21] MEDS ORDERED: QUEtiapine 100 MG TAB ONE (09:58)
[2020-01-21] MEDS: QUEtiapine 100 MG TAB PO SCH ×2 (10:44→21:29)
[2020-01-21] MEDS: OMEGA-3 FATTY ACIDS/FISH OIL 1 GRAM CAP PO SCH ×2 (10:45→21:28)
--- NOTE | 2020-01-21 18:22 | Progress Note ---
Subjective Date of service: 01/21/20 Principal diagnosis: Lewybody Dementia Subjective Comment: The patient's medical record was viewed and the patient's progress was discussed with the nursing staff. During my interview with the patient today, he is sitting in the dayroom. He says he no longer sees the spots or any hallucinations at all. He's calm, cooperative and pleasant. He denies SI/HI. Reason for continued inpatient treatment: The patient has improved signi ficantly. Will plan for a safe discharge tomorrow. REVIEW OF SYSTEMS Constitutional: Negative for weight loss ENT: Negative for stridor Respiratory: Negative for cough or hemoptysis All other systems reviewed and are negative MENTAL STATUS EXAMINATION General Appearance and Behavior: Age appropriate, good hygiene, wearing appropriate clothes, good eye contact, cooperative polite with questioning. Mood: Fine Affect and affective range: congruent Thought Process: Goal directed Thought Content: logical Speech: Normal volume, Regular rate and rhythm, Intellectual Functioning: Average Suicidal Ideation: Denies Homicidal Ideation: Denies Hallucinations: Denies Delusions: None elicited Impulse Control: Normal Insight and Judgment: Impaired Memory: impaired Attention: Limited Orientation: Alert, oriented Assessment and Plan (1) Dementia with psychosis Current Visit: Yes Status: Acute Treatment Plan Patient admitted for inpatient psychiatric evaluation, medication adjustment and close monitoring The patient's behavior, mood, sleep and appetite will be closely monitored. Patient enrolled in individual and group therapeutic sessions and encouraged to attend. Patient provided with a safe and structured environment. Patient's physical health needs will be addressed by the Hospitalist. Hospitalist Consulted Labs including CBC, CMP, Lipid profile and Hemoglobin A1C levels ordered for baseline reference Social Assessment will be completed and the Assistant Vice President will work with patient and family to ensure a suitable and safe disposition Medication adjustment will be made as clinically indicated No changes made today Usual Wellness Gnosticism/Preservation: - Start Trazodone 50 mg po QHS & 50 mg po QHS PRN between 10 PM & 2 AM for insomnia - Start Melatonin 5 mg po QHS to promote circadian rhythm - Start [place]-3 for brain health, reduce impulsivity, and as adjunctive treatment for mood disorder, continue upon discharge given overall benefits. - Start B1 prophylaxis with 200 mg po for 5 days The patient agreed on the treatment plan, understood the risk, benefit, alternative treatment, potential consequence of no treatment, and gave informed consent. Estimated days: 1 Post hospital care: primary care provider, psychiatric provider Medications and Allergies Allergies Allergy/AdvReac Type Severity Reaction Status Date / Time haloperidol [From Haldol] Allergy Unknown Verified 01/14/20 18:01 Home Medications Medication Instructions Recorded Confirmed Last Taken Type Memantine HCl 21 mg PO DAILY 01/16/20 01/16/20 Unknown History Metoprolol Tartrate 50 mg PO DAILY 01/16/20 01/16/20 Unknown History Pravastatin Sodium 20 mg PO DAILY 01/16/20 01/16/20 Unknown History Rivastigmine [Exelon Patch 9.5 mg TRANSDERMA Q24HR 01/16/20 01/16/20 Unknown History 9.5mg/24hr] Tamsulosin 0.4 mg PO DAILY 01/16/20 01/16/20 Unknown History [place]-3 Fatty Acids/Fish Oil [Fish 2,000 mg PO BID #120 capsule 01/20/20 Unknown Rx Oil] QUEtiapine [SEROquel] 100 mg PO BID #60 tablet 01/20/20 Unknown Rx traZODone [Desyrel] 50 mg PO QHS #30 tablet 01/20/20 Unknown Rx Active Meds: Active Medications Fish Oil (Fish Oil) 2,000 mg PO BID [facility] Last Admin: 01/20/20 22:24 Dose: 2,000 mg Documented by: Melatonin (Melatonin) 5 mg PO QHS PRN PRN Reason: Sleep Last Admin: 01/15/20 22:44 Dose: 5 mg Documented by: Quetiapine Fumarate (Seroquel) 100 mg PO BID [facility] Last Admin: 01/20/20 22:24 Dose: 100 mg Documented by: Trazodone HCl (Desyrel) 50 mg PO QHS [facility] Last Admin: 01/20/20 22:25 Dose: 50 mg Documented by: Results - Results Labs/Vitals: Laboratory Last Values WBC 5.4 K/mm3 (4.5-11.0) 01/20/20 08:50 RBC 4.55 M/mm3 (3.65-5.03) 01/20/20 08:50 Hgb 13.8 gm/dl (11.8-15.2) 01/20/20 08:50 Hct 41.1 % (35.5-45.6) 01/20/20 08:50 MCV 91 fl (84-94) 01/20/20 08:50 MCH 30 pg (28-32) 01/20/20 08:50 MCHC 34 % (32-34) 01/20/20 08:50 RDW 15.4 % (13.2-15.2) H 01/20/20 08:50 Plt Count 191 K/mm3 (140-440) 01/20/20 08:50 Lymph % (Auto) 29.8 % (13.4-35.0) 01/20/20 08:50 [place] % (Auto) 7.3 % (0.0-7.3) 01/20/20 08:50 Eos % (Auto) 4.0 % (0.0-4.3) 01/20/20 08:50 Baso % (Auto) 0.5 % (0.0-1.8) 01/20/20 08:50 Lymph # (Auto) 1.6 K/mm3 (1.2-5.4) 01/20/20 08:50 [place] # (Auto) 0.4 K/mm3 (0.0-0.8) 01/20/20 08:50 Eos # (Auto) 0.2 K/mm3 (0.0-0.4) 01/20/20 08:50 Baso # (Auto) 0.0 K/mm3 (0.0-0.1) 01/20/20 08:50 Seg Neutrophils % 58.4 % (40.0-70.0) 01/20/20 08:50 Seg Neutrophils # 3.1 K/mm3 (1.8-7.7) 01/20/20 08:50 Sodium 143 mmol/L (137-145) 01/20/20 08:50 Potassium 4.2 mmol/L (3.6-5.0) 01/20/20 08:50 Chloride 104.8 mmol/L (98-107) 01/20/20 08:50 Carbon Dioxide 27 mmol/L (22-30) 01/20/20 08:50 Anion Gap 15 mmol/L 01/20/20 08:50 BUN 20 mg/dL (9-20) 01/20/20 08:50 Creatinine 1.2 mg/dL (0.8-1.3) 01/20/20 08:50 Estimated GFR > 60 ml/min 01/20/20 08:50 BUN/Creatinine Ratio 17 % 01/20/20 08:50 Glucose 106 mg/dL (75-100) H 01/20/20 08:50 POC Glucose 103 mg/dL (70-105) 01/21/20 08:27 Hemoglobin A1c 6.1 % (4-6) H 01/16/20 16:35 Calcium 8.2 mg/dL (8.4-10.2) L 01/20/20 08:50 Triglycerides 85 mg/dL (2-149) 01/16/20 16:35 Cholesterol 191 mg/dL (50-199) 01/16/20 16:35 LDL Cholesterol Direct 129 mg/dL (50-130) 01/16/20 16:35 HDL Cholesterol 54 mg/dL (40-59) 01/16/20 16:35 Cholesterol/HDL Ratio 3.53 % 01/16/20 16:35 TSH 1.770 mlU/mL (0.270-4.200) 01/16/20 16:35 Hepatitis A IgM Ab Non-reactive (NonReactive) 01/16/20 16:35 Hep Bs Antigen Non-reactive (Negative) 01/16/20 16:35 Hep B Core IgM Ab Non-reactive (NonReactive) 01/16/20 16:35 Hepatitis C Antibody Non-reactive (NonReactive) 01/16/20 16:35 Last Vital Signs Temp 97.5 F L 01/21/20 10:00 Pulse 65 01/21/20 10:00 Resp 18 01/21/20 10:00 BP 140/72 01/21/20 10:00 Pulse Ox 98 01/21/20 10:00
--- NOTE | 2020-01-21 21:01 | XRay Report ---
XR chest 1V ap INDICATION / CLINICAL INFORMATION: r/o tb COMPARISON: 01/14/2020 FINDINGS: SUPPORT DEVICES: None. HEART / MEDIASTINUM: No significant abnormality. LUNGS / PLEURA: No airspace disease. No right upper lobe cavitation. Lungs are clear. Costophrenic s ulci are sharp. No pneumothorax. ADDITIONAL FINDINGS: No significant additional findings. IMPRESSION: 1. No significant cardiothoracic abnormality. No evidence of active tuberculosis. Signer Name: Jose St MD Signed: 01/21/2020 8:57 PM Workstation Name: [id number]
[2020-01-21] MEDS: traZODone 50 MG TAB PO SCH (21:28)
[2020-01-21 22:17] VITALS: BP 126/69
--- NOTE | 2020-01-22 09:03 | Discharge Summary ---
Providers - Providers Date of Admission: 01/15/20 19:50 Date of discharge: 01/22/20 Attending physician: CADY CUNHA MD 01/15/20 17:29 Consult to Physician [CONS] Routine Comment: Consulting Provider: PATI GODDARD Physician Instructions: Reason For Exam: Medical Management Primary care physician: [employer] OPERATOR Hospitalization Reason for admission: suicidal ideation Admitting Diagnosis: G31.83 - DEMENTIA WITH LEWY BODIES Hospital course: The patient was provided inpatient psychiatric treatment with safe and supportive care, medication adjustment, adverse effect monitoring, medical evaluations, medical treatments, assessment and psycho-education. The patient's mood, cognition, behavior, moral support are improved and stabilized. St the time of discharge, the patient had no endangering behavior and no debilitating adverse effects. The patient agreed on potential consequences of no treatment a nd gave informed consent. Disposition: - TO HOME OR SELFCARE Time spent for discharge: 38 Allergies/Adverse Reactions: Allergies haloperidol [From Haldol] Allergy (Verified 01/14/20 18:01) Unknown Vital Signs: Last Vital Signs Temp 98.6 F 01/21/20 19:19 Pulse 84 01/21/20 19:19 Resp 18 01/21/20 19:19 BP 126/69 01/21/20 19:19 Pulse Ox 100 01/21/20 19:19 Last Lab: Laboratory Last Values WBC 5.4 K/mm3 (4.5-11.0) 01/20/20 08:50 RBC 4.55 M/mm3 (3.65-5.03) 01/20/20 08:50 Hgb 13.8 gm/dl (11.8-15.2) 01/20/20 08:50 Hct 41.1 % (35.5-45.6) 01/20/20 08:50 MCV 91 fl (84-94) 01/20/20 08:50 MCH 30 pg (28-32) 01/20/20 08:50 MCHC 34 % (32-34) 01/20/20 08:50 RDW 15.4 % (13.2-15.2) H 01/20/20 08:50 Plt Count 191 K/mm3 (140-440) 01/20/20 08:50 Lymph % (Auto) 29.8 % (13.4-35.0) 01/20/20 08:50 [place] % (Auto) 7.3 % (0.0-7.3) 01/20/20 08:50 Eos % (Auto) 4.0 % (0.0-4.3) 01/20/20 08:50 Baso % (Auto) 0.5 % (0.0-1.8) 01/20/20 08:50 Lymph # (Auto) 1.6 K/mm3 (1.2-5.4) 01/20/20 08:50 [place] # (Auto) 0.4 K/mm3 (0.0-0.8) 01/20/20 08:50 Eos # (Auto) 0.2 K/mm3 (0.0-0.4) 01/20/20 08:50 Baso # (Auto) 0.0 K/mm3 (0.0-0.1) 01/20/20 08:50 Seg Neutrophils % 58.4 % (40.0-70.0) 01/20/20 08:50 Seg Neutrophils # 3.1 K/mm3 (1.8-7.7) 01/20/20 08:50 Sodium 143 mmol/L (137-145) 01/20/20 08:50 Potassium 4.2 mmol/L (3.6-5.0) 01/20/20 08:50 Chloride 104.8 mmol/L (98-107) 01/20/20 08:50 Carbon Dioxide 27 mmol/L (22-30) 01/20/20 08:50 Anion Gap 15 mmol/L 01/20/20 08:50 BUN 20 mg/dL (9-20) 01/20/20 08:50 Creatinine 1.2 mg/dL (0.8-1.3) 01/20/20 08:50 Estimated GFR > 60 ml/min 01/20/20 08:50 BUN/Creatinine Ratio 17 % 01/20/20 08:50 Glucose 106 mg/dL (75-100) H 01/20/20 08:50 POC Glucose 94 mg/dL (70-105) 01/22/20 08:47 Hemoglobin A1c 6.1 % (4-6) H 01/16/20 16:35 Calcium 8.2 mg/dL (8.4-10.2) L 01/20/20 08:50 Triglycerides 85 mg/dL (2-149) 01/16/20 16:35 Cholesterol 191 mg/dL (50-199) 01/16/20 16:35 LDL Cholesterol Direct 129 mg/dL (50-130) 01/16/20 16:35 HDL Cholesterol 54 mg/dL (40-59) 01/16/20 16:35 Cholesterol/HDL Ratio 3.53 % 01/16/20 16:35 TSH 1.770 mlU/mL (0.270-4.200) 01/16/20 16:35 Hepatitis A IgM Ab Non-reactive (NonReactive) 01/16/20 16:35 Hep Bs Antigen Non-reactive (Negative) 01/16/20 16:35 Hep B Core IgM Ab Non-reactive (NonReactive) 01/16/20 16:35 Hepatitis C Antibody Non-reactive (NonReactive) 01/16/20 16:35 Core Measure Documentation - Palliative Care Palliative Care/ Comfort Measures: Not Applicable - Core Measures Any of the following diagnoses?: none Exam - Constitutional Vitals: Temp Pulse Resp BP Pulse Ox 98.6 F 84 18 126/69 100 01/21/20 19:19 01/21/20 19:19 01/21/20 19:19 01/21/20 19:19 01/21/20 19:19 General appearance: Present: no acute distress - EENT Eyes: Present: EOM intact ENT: hearing intact, clear oral mucosa - Neck Neck: Present: supple, normal ROM - Respiratory Respiratory effort: normal Plan Activity: advance as tolerated Weight Bearing Status: Weight Bear as Tolerated Care Plan Goals: Maintain good and stable mental health Plan of Treatment: The patient should be compliant with medications, not to use drugs, and not to drink alcohol. The patient understands that if suicidal ideas, homicidal ideas or any endangering feeling arise, the patient should seek assistance including, but not limited to crisis hotline, and emergency room. Health Concerns: Hyperlipidemia, hypertension Assessment: Lewybody Dementia Follow up with: PRIMARY CARE, [Primary Care Provider] - 7 Days Prescriptions: traZODone [Desyrel] 50 mg PO QHS #30 tablet [place]-3 Fatty Acids/Fish Oil [Fish Oil] 2,000 mg PO BID #120 capsule QUEtiapine [SEROquel] 100 mg PO BID #60 tablet
[2020-01-22] MEDS: QUEtiapine 100 MG TAB PO SCH (10:44)
[2020-01-22] MEDS: OMEGA-3 FATTY ACIDS/FISH OIL 1 GRAM CAP PO SCH (10:45)
== END 2020-01-22 17:52 | disposition home or self-care (01) | DRG 57 ==
LOC: UNDOADMIN 16:49 → 3A 16:49 → 5A 19:50
PROVIDERS: ADMIT Psychiatry & Neurology Psychiatry; ATTEND Psychiatry & Neurology Psychiatry
DX: G31.83 Neurocognitive disorder with Lewy bodies (principal); F02.80 Dementia in other diseases classified elsewhere, unspecified severity, without behavioral disturbance, psychotic disturbance, mood disturbance, and anxiety; Z20.828 Contact with and (suspected) exposure to other viral communicable diseases; Z88.8 Allergy status to other drugs, medicaments and biological substances; I10 Essential (primary) hypertension; E78.5 Hyperlipidemia, unspecified
CPT/HCPCS: 36415; 70450; 71045; 80048; 80053; 80061; 80074; 80307; 80320; 81001; 82962; 83036; 84443; 84484; 85025; 93005; G0378; G0480; U0003